=== PATIENT | female | born 1985 | race Caucasian/White ===

== ENCOUNTER 2020-09-22 16:02 | Outpatient (CLI) | payer OTHER ==
[~2020-09-22] VITALS: Ht 160 cm; Wt 77.3 kg
[2020-09-22 16:05] VITALS: BP 106/55
[2020-09-22 17:11] LABS: BASOPHILS % (AUTO) 0 % (0-1); EOSINOPHILS % (AUTO) 1 % (1-7); LYMPHOCYTES % (AUTO) 18 % (22-44); MEAN CORPUSCULAR HGB CONC 34.7 g/dL (32.4-35.8); MEAN PLATELET VOLUME 8.7 fL (7.4-10.4); MONOCYTES % (AUTO) 4 % (2-9); NEUTROPHILS % (AUTO) 77 % (42-75); PLATELET COUNT 103 x10^3/uL (130-400); RED BLOOD COUNT 3.44 x10^6/uL (3.82-5.3); RED CELL DISTRIBUTION WIDTH 14.4 % (9.6-15.2)
[2020-09-22 17:13] LABS: MD NO
== END 2020-09-22 19:30 | disposition home or self-care (01) ==
LOC: LDOP 16:02
PROVIDERS: ATTEND Student in an Organized Health Care Education/Training Program
DX: O9A.213 Injury, poisoning and certain other consequences of external causes complicating pregnancy, third trimester (principal); Z3A.32 32 weeks gestation of pregnancy
CPT/HCPCS: 36415; 59025; 85025; 85384; 85460

== ENCOUNTER 2020-11-06 07:54 | Inpatient (IN) | payer OTHER ==
[~2020-11-06] VITALS: Ht 160 cm; Wt 79.5 kg
[2020-11-06 08:05] VITALS: BP 109/65
[2020-11-06] MEDS ORDERED: NEWBORN KIT ONE (08:21)
[2020-11-06] MEDS ORDERED: OXYTOCIN 30U/ 0.9% NaCL 500ML 500 ML ONE (08:22)
[2020-11-06] MEDS ORDERED: OXYTOCIN 30U/ 0.9% NaCL 500ML 500 ML IV PRN (08:30)
[2020-11-06] MEDS ORDERED: MISOPROSTOL 25 MCG TABLET VG PRN (08:30)
[2020-11-06] MEDS ORDERED: CALCIUM CARBONATE 500 MG TAB.CHEW PO PRN (08:30)
[2020-11-06] MEDS ORDERED: TERBUTALINE 1 MG/ML, 1ML IVPush PRN (08:30)
[2020-11-06] MEDS ORDERED: ONDANSETRON 2MG/ML, 2ML IVPush PRN ×2 (08:30→17:30)
[2020-11-06] MEDS ORDERED: LACTATED RINGERS 1,000 ML IV SCH ×2 (08:30→18:00)
[2020-11-06] MEDS ORDERED: OXYTOCIN 30U/ 0.9% NaCL 500ML 500 ML IV ONE (08:30)
[2020-11-06] MEDS ORDERED: FENTANYL PF 100 MCG/2ML IVPush PRN (08:30)
[2020-11-06] MEDS ORDERED: D5%-LACTATED RINGERS 1,000 ML IV SCH (08:30)
[2020-11-06] MEDS ORDERED: TERBUTALINE 1 MG/ML, 1ML SQ PRN (08:30)
[2020-11-06] MEDS ORDERED: FENTANYL PF 100 MCG/2ML IV PRN (08:30)
[2020-11-06 08:48] LABS: BASOPHILS % (AUTO) 0 % (0-1); EOSINOPHILS % (AUTO) 1 % (1-7); LYMPHOCYTES % (AUTO) 21 % (22-44); MEAN CORPUSCULAR HGB CONC 34.4 g/dL (32.4-35.8); MEAN PLATELET VOLUME 8.6 fL (7.4-10.4); MONOCYTES % (AUTO) 4 % (2-9); NEUTROPHILS % (AUTO) 74 % (42-75); PLATELET COUNT 108 x10^3/uL (130-400); RED BLOOD COUNT 3.53 x10^6/uL (3.82-5.3); RED CELL DISTRIBUTION WIDTH 14.4 % (9.6-15.2)
[2020-11-06 08:50] LABS: MD NO
[2020-11-06] MEDS ORDERED: MISOPROSTOL 25 MCG TABLET ONE (08:52)
[2020-11-06] MEDS ORDERED: PLEASE ENTER HEIGHT AND WEIGHT MC SCH (09:00)
[2020-11-06] MEDS ORDERED: LIDOCAINE 1%, 20ML ONE (11:02)
[2020-11-06] MEDS ORDERED: MISOPROSTOL 200 MCG TABLET ONE (11:02)
[2020-11-06] MEDS ORDERED: FENTANYL/BUPIV./NS/PF 250 ML EPIDCONT ONE (16:22)
[2020-11-06] MEDS ORDERED: BUPIVACAINE 0.25% ONE (16:22)
[2020-11-06] MEDS ORDERED: NALOXONE 0.4 MG/ML, 1ML IVPush PRN (17:30)
[2020-11-06] MEDS ORDERED: FENTANYL/BUPIV./NS/PF 250 ML EPIDCONT SCH (17:30)
[2020-11-06] MEDS ORDERED: LACTATED RINGERS 1,000 ML IVBOLUS PRN (17:30)
[2020-11-06] MEDS ORDERED: DIPHENHYDRAMINE 50 MG/ML, 1ML IVPush PRN (17:30)
[2020-11-06] MEDS ORDERED: EPHEDRINE 50 MG/ML, 1ML IVPush PRN (17:30)
[2020-11-06] MEDS ORDERED: DOCUSATE 100 MG CAPSULE PO PRN (21:30)
[2020-11-06] MEDS ORDERED: MISOPROSTOL 200 MCG TABLET PR PRN (21:30)
[2020-11-06] MEDS ORDERED: ONDANSETRON 2MG/ML, 2ML IV PRN (21:30)
[2020-11-06] MEDS: OXYTOCIN 30U/ 0.9% NaCL 500ML 500 ML IV SCH (21:30)
[2020-11-06] MEDS ORDERED: SIMETHICONE 80 MG CHEW TAB PO PRN (21:30)
[2020-11-06] MEDS: IBUPROFEN 800 MG TABLET PO PRN (22:12)
[2020-11-06 23:15] VITALS: BP 100/62
[2020-11-07] MEDS: OXYcodone IR 5MG TABLET PO PRN ×4 (02:31→15:50)
[2020-11-07] MEDS: ACETAMINOPHEN 325 MG TABLET PO PRN ×3 (02:31→15:48)
[2020-11-07 03:00] VITALS: BP 98/56
[2020-11-07 04:50] LABS: BASOPHILS % (AUTO) 0 % (0-1); EOSINOPHILS % (AUTO) 1 % (1-7); LYMPHOCYTES % (AUTO) 17 % (22-44); MD NO; MEAN CORPUSCULAR HGB CONC 34.1 g/dL (32.4-35.8); MEAN PLATELET VOLUME 9.1 fL (7.4-10.4); MONOCYTES % (AUTO) 5 % (2-9); NEUTROPHILS % (AUTO) 78 % (42-75); PLATELET COUNT 109 x10^3/uL (130-400); RED BLOOD COUNT 3.54 x10^6/uL (3.82-5.3); RED CELL DISTRIBUTION WIDTH 14.3 % (9.6-15.2)
[2020-11-07] MEDS: IBUPROFEN 800 MG TABLET PO PRN ×2 (06:31→14:10)
[2020-11-07] MEDS: OXYTOCIN 30U/ 0.9% NaCL 500ML 500 ML IV SCH ×2 (07:30→17:30)
[2020-11-07] MEDS ORDERED: IBUP-1222 PO (07:57)
[2020-11-07] MEDS ORDERED: PRENATAL VIT/IRON/FA 1 EACH TABLET PO SCH (09:00)
[2020-11-07 11:25] VITALS: BP 97/62
[2020-11-07 16:15] VITALS: BP 102/65
== END 2020-11-07 19:10 | disposition home or self-care (01) | DRG 807 ==
LOC: LDIP 07:54 → 2NW 22:55
PROVIDERS: ADMIT Student in an Organized Health Care Education/Training Program; ATTEND Student in an Organized Health Care Education/Training Program
PROC: 10E0XZZ Delivery of Products of Conception, External Approach (ICD-10-PCS; principal; 2020-11-06)
PROC: 0KQM0ZZ Repair Perineum Muscle, Open Approach (ICD-10-PCS; 2020-11-06)
PROC: 10907ZC Drainage of Amniotic Fluid, Therapeutic from Products of Conception, Via Natural or Artificial Opening (ICD-10-PCS; 2020-11-06)
PROC: 3E033VJ Introduction of Other Hormone into Peripheral Vein, Percutaneous Approach (ICD-10-PCS; 2020-11-06)
PROC: 10H07YZ Insertion of Other Device into Products of Conception, Via Natural or Artificial Opening (ICD-10-PCS; 2020-11-06)
PROC: 3E0R3BZ Introduction of Anesthetic Agent into Spinal Canal, Percutaneous Approach (ICD-10-PCS; 2020-11-06)
PROC: 00HU33Z Insertion of Infusion Device into Spinal Canal, Percutaneous Approach (ICD-10-PCS; 2020-11-06)
DX: O99.12 Other diseases of the blood and blood-forming organs and certain disorders involving the immune mechanism complicating childbirth (principal); Z37.0 Single live birth; O70.1 Second degree perineal laceration during delivery; O99.284 Endocrine, nutritional and metabolic diseases complicating childbirth; D69.59 Other secondary thrombocytopenia; E28.2 Polycystic ovarian syndrome; E55.9 Vitamin D deficiency, unspecified; Z20.822 Contact with and (suspected) exposure to COVID-19; Z3A.39 39 weeks gestation of pregnancy; Z80.8 Family history of malignant neoplasm of other organs or systems; Z82.3 Family history of stroke; Z82.49 Family history of ischemic heart disease and other diseases of the circulatory system
CPT/HCPCS: 36415; 87806; J7121; 85025; 86592; 86850; 86900; 87635; G0378; J2405; G0475; J2590; J7120